=== PATIENT | female | born 1995 | race Caucasian/White ===

== ENCOUNTER 2020-12-10 00:46 | Emergency (ER) | payer OTHER, SELFPAY ==
[2020-12-10 00:50] VITALS: BP 109/65; PULSE 84; RESP 20; O2SAT 99
--- NOTE | 2020-12-10 01:00 | ED.NAVMDI ---
HPI - Nausea/Vomiting/Diarrhea General Chief complaint: Nausea/Vomiting/Diarrhea Stated complaint: VOMITING Time Seen by Provider: 12/10/20 01:00 Source: patient and family Mode of arrival: ambulatory Limitations: no limitations History of Present Illness HPI Narrative: This young woman comes in after having repeated episodes of nausea and vomiting all day. She just had another episode of emesis just prior to arrival. She comes in due to the emesis. She denies abdominal pain and symptoms of a UTI. Nausea has been mild, but ongoing all day and has came and gone. MD elicited complaint: nausea and vomiting Pertinent past history: other () Description of vomiting: food contents and bilious Description of diarrhea: other Associated nausea: Yes Associated abdominal pain: No Location of pain: none Exacerbating factors: eating Context: possible food poisoning Associated symptoms: diaphoresis and other (chills earlier today) Related Data Home Medications Medication Instructions Recorded Confirmed Daily 1 tablet PO DAILY 12/10/20 12/10/20 Allergies Allergy/AdvReac Type Severity Reaction Status Date / Time No Known Allergies Allergy Verified 12/10/20 01:42 Review of Systems Constitutional: Constitutional: Reports no additional constitutional complaints Eyes: Eyes: Reports no additional eye complaints ENT: Reports system reviewed and no additional complaints, except as documented Cardiovascular: Cardiovascular: Reports no additional cardiovascular complaints Respiratory: Respiratory: Reports no additional respiratory complaints Gastrointestinal: Gastrointestinal: Reports no additional gastrointestinal complaints Genitourinary: Genitourinary: Reports no additional female genitourinary complaints Musculoskeletal: Musculoskeletal: Reports no additional musculoskeletal complaints Integumentary/Breasts: Skin/Breast: Reports system reviewed and no additional complaints, except as docu Neurologic: Reports system reviewed and no additional complaints, except as documented Psychiatric: Psychiatric: Reports no additional psychiatric complaints Endocrine: Endocrine: Reports no additional endocrine complaints Hematologic/Lymphatic: Hematologic/Lymphatic: Reports no additional hematologic/lymphatic complaints Allergic/Immunologic: Allergic/Immunologic: Reports no additional allergic/immunologic complaints [facility] Past Medical History Medical History (Updated 12/10/20 @ 02:18 by Jamaal Chopra MD) Cystitis No significant family history Surgical History Surgical History No significant past surgical history Family History Family History Mother Obesity Social History Social History Smoking status: Current every day smoker Tobacco type: cigarettes Additional smoking assessment comments: 11/18 PPD Alcohol intake: former Substance use type: former substance user and marijuana Other substance usage details: stopped marijuana after realizied she was Living arrangements: with friend(s) Gender identity (if verbalized by the patient): Female Sexual Orientation (if Verbalized by the Patient): Straight or Heterosexual Spiritual care concerns: No MDM - Nausea/Vomiting/Diarrhea Differential Diagnosis Differential diagnosis: Likely food poisoning, gastroenteritis, drug-induced nausea and vomiting and other (viral illness, ) Medical Records Attestation: I reviewed the patient's medical records. Lab Data Attestation: I reviewed the patient's lab results. Discharge Plan Discharge Clinical Impression: Cystitis Patient Disposition: Home, Self-Care Condition: Stable Instructions: Antibiotic Form, Urinary Tract Infection in (ED) Additional Instructions: Follow up with family doctor Friday or Friday to [facility]
[2020-12-10] MEDS: ONDANSETRON HCL ODT 4 MG TABLET PO (01:15)
[2020-12-10 01:17] LABS: Add Urine Microscopic? YES; Bilirubin Urine Negative (Negative); Blood Urine Negative (Negative); Color Urine Yellow (Yellow); Glucose Urine UA Negative (Negative); Ketones Urine Negative (Negative); Leukocyte Esterase Ur 2+ (Negative); Nitrate Urine Negative (Negative); Protein Urine Negative (Negative); Specific Grav Ur 1.025 (1.010-1.020); Urobilinogen Urine 0.2 mg/dL (0.2-1.0); pH Urine 6.5 (5.0-8.0)
[2020-12-10 01:33] LABS: Appearance Urine Cloudy (Clear); RBC Urine 0-2 /hpf (0-2)
[2020-12-10 01:34] LABS: Squamous Epithelial Cell Urine Many /hpf (Few); WBC Urine 16-20 /hpf (0-3)
[2020-12-10 01:35] LABS: Bacteria Urine 4+ /hpf
--- NOTE | 2020-12-10 01:38 | PC.NURSE ---
pt states went to planning clinic for positive test. had sonogram, having twins. does not have a family doctor, nor has she picked an obgyn to follow with during this . offered HIV testing, pt declined. form signed.
[2020-12-10] MEDS: cefTRIAXone 1 GM VIAL IM (01:56)
[2020-12-10 02:14] VITALS: BP 91/50; PULSE 63; RESP 20; O2SAT 99
== END 2020-12-10 02:20 | disposition home or self-care (01) ==
PROVIDERS: Emergency Provider Emergency Medicine
DX: N30.90 Cystitis, unspecified without hematuria (principal)
CPT/HCPCS: 81001; 87086; 96372; 99283; A9270; J0696

== ENCOUNTER 2021-02-10 10:04 | Emergency (ER) | payer OTHER, SELFPAY ==
[2021-02-10 10:25] VITALS: BP 93/59; PULSE 92; RESP 20; TEMP 36.6; O2SAT 99
--- NOTE | 2021-02-10 10:46 | ED.FEMALEGU ---
HPI - Female Genitourinary General Chief complaint: Dizziness Stated complaint: dizzyness, confusion, lower back pain, RLQ pain Source: patient and family Mode of arrival: ambulatory History of Present Illness HPI Narrative: This is a 25-year-old female that presents with mid lower back pain, with some suprapubic dullness and tenderness with pressure with some mild dysuria and mild flank pain with no fever or chills, with no chest pain no shortness of breath currently no nausea or vomiting has had urinary tract infection about 2 to 3 months ago was treated. Does follow with some OBGYN at [facility] with no vaginal bleeding no vaginal discharge. Patient is 4 months approximately and not having any abdominal pain no crampy abdominal discomfort or pain. Patient has been feeling dizzy and while at work today felt dizzy and was some mild confusion and her blood pressure was 93/59 during presentation to the emergency department. MD elicited complaint: dysuria and back pain Pertinent past history: recurrent UTIs Onset (ago): day(s) Location of symptoms: suprapubic Severity: moderate Female Urogenital Radiation: Suprapubic Severity scale (1-10): 3 Quality of pain: dull Consistency: intermittent Vaginal discharge: none Vaginal bleeding: none Urinary symptoms: Dysuria and Flank Pain Related Data Home Medications Medication Instructions Recorded Confirmed Daily 1 tablet PO DAILY 12/10/20 02/10/21 Allergies Allergy/AdvReac Type Severity Reaction Status Date / Time Penicillins Allergy Rash Verified 02/10/21 10:39 Review of Systems Review of Systems: All systems reviewed & are unremarkable except as noted in HPI and below PMFSH Past Medical History Medical History Cystitis No significant family history Surgical History Surgical History No significant past surgical history Family History Family History Mother Obesity Social History Social History Smoking status: Current every day smoker Tobacco type: cigarettes Additional smoking assessment comments: 1/2 PPD Alcohol intake: former Substance use type: former substance user and marijuana Other substance usage details: stopped marijuana after realizied she was Gender identity (if verbalized by the patient): Female Spiritual care concerns: No Exam Const: General: no acute distress and alert Orientation/consciousness: patient oriented x3 HENMT: Head: normal to inspection Eyes: Conjunctivae: conjunctivae normal Pupils: Equal, round and reactive pupils present Neck: Neck: normal visual inspection, no lymphadenopathy and no meningeal signs Chest: Chest palpation & inspection: normal inspection of the chest Resp: Effort & Inspection: normal respiratory effort Auscultation: clear to auscultation bilaterally Cardio: Rate: regular rate Rhythm: regular rhythm GI: GI Palp: Yes Soft to palpation Other: Suprapubic tenderness with palpation with mid lower back pain with palpation : General: Yes no CVA tenderness Urinary Catheter: Urinary Catheter: patent and draining and urine cloudy Skin: General skin exam: normal color Rashes: no rashes Neuro: General: patient oriented x3 and moves all extremities Extrem: General: normal to inspection and no pedal edema Course Course Emergency Course: reassessment of patient Ms. some more comfortable received IV fluids blood pressure is stable reviewed labs and urinalysis shows that the patient has urinary tract infection. Patient blood pressure is currently 97/58 is currently receiving IV fluids and spoke to team and patient is currently stable and feel comfortable sending the patient home with antibiotics for urinary tract infecti
[2021-02-10 11:04] LABS: Add Urine Microscopic? YES; Appearance Urine Sl Cloudy (Clear); Bilirubin Urine Negative (Negative); Blood Urine Negative (Negative); Color Urine Yellow (Yellow); Glucose Urine UA Negative (Negative); Ketones Urine Negative (Negative); Leukocyte Esterase Ur 1+ (Negative); Nitrate Urine Negative (Negative); Protein Urine Negative (Negative); Specific Grav Ur 1.025 (1.010-1.020); Urobilinogen Urine 0.2 mg/dL (0.2-1.0); pH Urine 6.5 (5.0-8.0)
[2021-02-10 11:09] LABS: Basophils Absolute Auto 0.04 K/mm3 (0.00-0.10); Basophils Percent Auto 0.4 % (0.0-1.0); Eosinophils Percent Auto 1.9 % (1.0-6.0); Hematocrit 31.4 % (35.0-49.0); Hemoglobin 10.5 g/dL (12.0-15.0); Immature Granulocyte Absolute 0.28 K/mm3 (0.00-0.00); Immature Granulocyte Percent A 2.6 % (0.0-0.0); Lymphocytes Absolute Auto 1.92 K/mm3 (1.10-4.50); Mean Corpuscular HGB Conc 33.4 g/dL (32.0-36.0); Mean Corpuscular Hemoglobin 29.7 pg (27.0-31.0); Mean Platelet Volume 10.7 fl (9.2-11.8); Monocytes Absolute Auto 0.84 K/mm3 (0.10-0.90); Monocytes Percent Auto 7.9 % (2.0-11.0); Neutrophils Absolute Auto 7.4 K/mm3 (1.7-7.2); Neutrophils Percent Auto 69.2 % (50.0-70.0); Platelet Count Result 232 K/mm3 (150-420); RBC Urine None seen /hpf (0-2); Red Blood Count 3.53 M/mm3 (4.20-5.40); Red Cell Distribution Width 16.4 % (11.6-14.4); White Blood Count 10.6 K/mm3 (4.8-10.8)
[2021-02-10 11:10] LABS: Bacteria Urine 1+ /hpf; Mucus Urine Few /lpf; Squamous Epithelial Cell Urine Few /hpf (Few)
[2021-02-10 11:19] LABS: Alanine Aminotransferase 26 U/L (14-59); Albumin Level 2.5 g/dL (3.4-5.0); Alkaline Phosphatase 81 U/L (46-116); Anion Gap 8 mmol/L (8-16); Aspartate Amino Transferase 15 U/L (15-37); Bilirubin,Total 0.2 mg/dL (0.00-1.00); Blood Urea Nitrogen 13 mg/dL (7-18); Calcium 8.6 mg/dL (8.5-10.1); Carbon Dioxide 25 mmol/L (21-32); Chloride 103 mmol/L (98-108); Estimated CRCL calculation 121 ml/min; Estimated Glomerular Filt Rate > 60; Glucose 63 mg/dL (70-99); Osmolality Calculated 280 mOsm/kg (285-295); Potassium 3.7 mmol/L (3.5-5.1); Sodium 136 mmol/L (136-145); Total Protein 6.2 g/dL (6.4-8.2)
[2021-02-10] MEDS: SODIUM CHLORIDE 0.9% IV 1,000 ML 999 ML IV CONT ×2 (11:19→12:04)
--- NOTE | 2021-02-10 11:41 | PC.NURSE ---
Call placed to Center at [facility] for consult c perinatalist.
--- NOTE | 2021-02-10 11:42 | PC.NURSE ---
ERP speaking c perinatologist Dr. Montenegro. Pt. llying supine at this time. BP 90/56 and pt. reports still feeling weak.
--- NOTE | 2021-02-10 11:43 | ECG_ITS ---
Measurements Intervals [place] Rate: 78 P: 9 MT: 165 QRS: 68 QRSD: 91 T: 40 QT: 370 QTc: 421 Interpretive Statements SINUS RHYTHM BASELINE ARTIFACT- I, III, AVL NORMAL ECG Electronically Signed On 02-11-2021 16:36:14 CDT by Neo Moise D.O.
--- NOTE | 2021-02-10 11:49 | PC.NURSE ---
Consult c Dr. Gomez by ERP Dr. Roman and orders received.
--- NOTE | 2021-02-10 12:08 | PC.NURSE ---
Report given to Nick Martinez
[2021-02-10 12:18] VITALS: BP 97/58
[2021-02-10 13:00] VITALS: BP 98/69; PULSE 99; RESP 20; TEMP 36.7; O2SAT 100
== END 2021-02-10 13:05 | disposition home or self-care (01) ==
PROVIDERS: Emergency Provider Emergency Medicine
DX: N30.00 Acute cystitis without hematuria (principal)
CPT/HCPCS: 36415; 80053; 81001; 85025; 93005; 96360; 96361; 99283; J7030

== ENCOUNTER 2024-05-10 11:17 | Emergency (ER) | payer MEDICAID, SELFPAY ==
--- NOTE | ~2024-05-10 | CT_ITS ---
EXAMINATION: CT cervical spine wo con DATE: 05/10/2024 12:31 INDICATION: Neck injury. TECHNIQUE: Computed tomography (CT) of the cervical spine was performed without intravenous contrast. Automated exposure control and iterative reconstruction technique were employed. The dose-length pro duct was 581.24 mGy-cm. COMPARISON: None FINDINGS: There is a 5 mm nodule in left thyroid lobe, likely not clinically significant. Bone alignm ent is normal. Vertebral body heights are normal. There is mildly decreased disc height at C6-C7. At C7-T1, there is mild bilateral facet joint osteoarthritis. No neural foraminal stenosis or central ca nal stenosis. IMPRESSION: 1. No fracture. 2. Mild cervical spondylosis. Reviewed, dictated and finalized at location A.
--- NOTE | ~2024-05-10 | CT_ITS ---
EXAMINATION: CT brain wo con DATE: 05/10/2024 12:31 INDICATION: Head injury TECHNIQUE: Computed tomography (CT) of the head was performed without intravenous contrast. Sagittal and coronal reconstructions were performed. The mA was adjusted according to patient size. Iterative reconstruction technique was employed. The dose-length product was 605.33 mGy-cm. COMPARISON: None FINDINGS: No fracture. No acute intracranial hemorrhage, acute infarction or abnormal extra axial fluid collect ion. Ventricles are normal and symmetric. No mass/mass effect. The orbits and paranasal sinuses are n ormal. Right mastoid is hypopneumatized. IMPRESSION: 1. Normal brain. No fracture or acute intracranial process. Reviewed, dictated and finalized at location B.
[2024-05-10 11:19] VITALS: BP 128/83; PULSE 88; RESP 16; TEMP 36.9; O2SAT 100
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
[2024-05-10 11:41] LABS: Pregnancy On Board Control Positive; Urine Pregnancy Test Negative
[2024-05-10 13:00] VITALS: BP 128/70; PULSE 65; RESP 16; TEMP 36.7; O2SAT 100
== END 2024-05-10 13:00 | disposition home or self-care (01) ==
PROVIDERS: Emergency Provider Internal Medicine Critical Care Medicine; PCP Family Medicine
DX: S06.0X9A Concussion with loss of consciousness of unspecified duration, initial encounter (principal); F17.210 Nicotine dependence, cigarettes, uncomplicated; Y04.2XXA Assault by strike against or bumped into by another person, initial encounter
CPT/HCPCS: 70450; 72125; 81025; 99284

== ENCOUNTER 2024-06-18 06:34 | Emergency (ER) | payer OTHER, SELFPAY ==
[2024-06-18 06:34] VITALS: BP 109/80; PULSE 112; RESP 18; TEMP 36.2; O2SAT 97
--- NOTE | 2024-06-18 06:48 | PC.NURSE ---
patient is talking on cell phone. talking in full sentences. WOB non labored while talking.
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
[2024-06-18] MEDS: methylPREDNISolone SOD SUCC 125 MG VIAL IM (07:24)
[2024-06-18 07:35] VITALS: BP 128/77; PULSE 87; RESP 20; TEMP 36.9; O2SAT 98
== END 2024-06-18 07:35 | disposition home or self-care (01) ==
PROVIDERS: Emergency Provider Emergency Medicine; PCP Family Medicine
DX: R22.0 Localized swelling, mass and lump, head (principal); T37.0X5A Adverse effect of sulfonamides, initial encounter; F17.210 Nicotine dependence, cigarettes, uncomplicated
CPT/HCPCS: 96372; 99283; J2919